=== PATIENT | female | born 1960 | race Caucasian/White ===

== ENCOUNTER 2019-06-06 11:54 | Emergency (ER) | payer MEDICARE ==
[2019-06-06 12:14] VITALS: BP 156/109; PULSE 107
[2019-06-06] MEDS ORDERED: Sodium Chloride 0.9% 500 ML IV ONE (12:47)
[2019-06-06] MEDS ORDERED: Sodium Chloride 0.9% 10 ML Syringe FLUSH PRN (12:47)
[2019-06-06] MEDS ORDERED: Albuterol/Ipratropium 3.0-0.5 MG/3 ML Neb Soln NEB ONE (12:47)
[2019-06-06] MEDS ORDERED: HYDROmorphone 0.5 MG/0.5 ML Syringe IVPUSH ONE ×2 (12:56→14:57)
[2019-06-06] MEDS ORDERED: Ondansetron 4 MG/2 ML SDV IVPUSH ONE (12:56)
[2019-06-06] MEDS ORDERED: predniSONE 20 MG Tab PO ONE (14:57)
[2019-06-06] MEDS ORDERED: Azithromycin 250 MG Tab PO STA (14:57)
[2019-06-06] MEDS ORDERED: Oseltamivir 30 MG Cap PO STA (14:57)
--- NOTE | 2019-06-06 15:06 | EDM.PDOC ---
ED HPI GENERAL MEDICAL PROBLEM - General Chief Complaint: Respiratory Problem Stated Complaint: TROUBLE BREATHING/CLINIC SENT HER Time Seen by Provider: 06/06/19 12:30 Source of Information: Reports: Patient History Limitations: Reports: No Limitations - History of Present Illness INITIAL COMMENTS - FREE TEXT/NARRATIVE: 59-year-old female presents for evaluationand treatment of shortness of breath. Patient sent from the walk-in clinic. She reports that she was ill several weeks ago. States that she felt short of breath and took her oxygen sats at home to be 74%. she presented to the [place] [facility]. she was placed on oxygen given a shot of steroids and a shot of antibiotics. she was prescribed steroids and a ten-day course of levaquin. she states that she has now finished the levaquin and the extra steroids about 3 days ago. she is on prednisone about 5 mg daily for RA. patient reports now last night her symptoms came back and are worse. she reports she has not had a fever, she has felt feverish with highest temperature she's had at home was 99. she reports chills. she reports a productive cough, headaches and bodyaches. she reports posttussive emesis. reports significant back pain that is worse than normal. she sees dr. Amanda lion of [facility]. patient has history of copd and states that she has multiple precancerous or cancerous lung nodules. she is on oxygen 2 l via nasal cannula at night. she was instructed by [facility] to use this during the day but she refuses because she is not want to become dependent on it. patient also sees dr. Bradford efficiency clerk in [place]. she had a kidney transplant about 10 years ago and is on immunosuppressive's for this. additionally patient has chronic back as well as pain from ra and osteoporosis. her primary care provider is in [place]. she has not seen her in follow-up since this started. she has not seen the last 2 months. Neck Pain Score (Numeric/FACES): 8 - Related Data Allergies Allergy/AdvReac Type Severity Reaction Status Date / Time cortisone Allergy Other Verified 06/06/19 12:14 Sulfa (Sulfonamide Allergy Hives Verified 06/06/19 12:14 Antibiotics) Home Meds: Home Meds ALPRAZolam [Xanax XR] 1 mg PO TID PRN 05/04/15 [History] Albuterol Sulfate 3 ml INH Q6HR PRN 05/04/15 [History] Cranberry 500 mg PO DAILY 05/04/15 [History] Esomeprazole [NexIUM] 40 mg PO DAILY 05/04/15 [History] Mycophenolate [Myfortic] 180 mg PO BID 05/04/15 [History] Tacrolimus [Prograf] 2 mg PO BID 05/04/15 [History] Tiotropium [Spiriva HandiHaler] 1 puff INH DAILY 05/04/15 [History] Triamcinolone Acetonide [Nasacort] 2 sprays RUBIA DAILY 05/04/15 [History] amLODIPine Besylate [Amlodipine Besylate] 10 mg PO DAILY 05/04/15 [History] oxyCODONE ER [OxyCONTIN] 10 mg PO TID PRN 05/04/15 [History] predniSONE [Prednisone] 5 mg PO DAILY 05/04/15 [History] Azithromycin 250 mg PO DAILY #4 tablet 06/06/19 [Rx] Oseltamivir [Tamiflu] 30 mg PO BID #9 cap 06/06/19 [Rx] predniSONE [Prednisone] 20 mg PO DAILY #6 tablet 06/06/19 [Rx] Past Medical History Cardiovascular History: Reports: Hypertension Respiratory History: Reports: Other (See Below) Other Respiratory History: lung nodules which pt states are cancerous Other Genitourinary History: 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 Had a kidney transplant 8 years ago. - Past Surgical History HEENT Surgical History: Reports: Tonsillectomy GI Surgical History: Reports: Cholecystectomy, Colonoscopy Social & Family History - Tobacco Use Smoking Status *Q: Current Some Day Smoker Years of Tobacco use: 43 Packs/Tins Daily: 0.1 - Caffeine Use Caffeine Use: Reports: Tea - Recreational Drug Use Recreational Drug Use: No ED ROS GENERAL - Review of Systems Review Of Systems: See Below Constitutional: Reports: Fever (subjective), Chills, Malaise, Other (Reports body aches) Respiratory: Reports: Shortness of Breath, Cough, Sputum Cardiovascular: Denies: Chest Pain GI/Abdominal: Reports: Vomiting (posttussive) : Reports: No Symptoms Musculoskeletal: Reports: Back Pain (Chronic) Neurological: Reports: Headache ED EXAM, GENERAL - Physical Exam Exam: See Below Exam Limited By: No Limitations General Appearance: Alert, WD/WN, Mild Distress, Thin Eye Exam: Bilateral Eye: Normal Inspection Ears: Normal External Exam, Normal Canal, Hearing Grossly Normal, Normal TMs Nose: Normal Inspection Throat/Mouth: Normal Inspection, Normal Lips, Normal Oropharynx, Normal Voice, No Airway Compromise Neck: Normal Inspection Respiratory/Chest: Rhonchi, Wheezing Cardiovascular: Normal Peripheral Pulses, No Murmur, Tachycardia GI/Abdominal: Normal Bowel Sounds, Soft, Non-Tender Neurological: Alert, Oriented, Normal Cognition Psychiatric: Normal Affect, Normal Mood Skin Exam: Warm, Dry, Normal Color EKG INTERPRETATION EKG Date: 06/06/19 Time: 13:11 Rhythm: NSR Rate (Beats/Min): 93 [place]: Normal P-Wave: Present QRS: Normal ST-T: Normal QT: Normal EKG Interpretation Comments: NSR at 93 bpm. Q waves in V2 and V3, slight ST depression in V5 and V6. Reviewed by myself and Dr. Tan. Course - Vital Signs Last Recorded V/S: Last Vital Signs Temp 98.2 F 06/06/19 12:08 Pulse 107 H 06/06/19 12:08 Resp 24 H 06/06/19 12:08 BP 156/109 H 06/06/19 12:08 Pulse Ox 96 06/06/19 12:50 - Orders/Labs/Meds Labs: Laboratory Tests 06/06/19 06/06/19 06/06/19 Range/Units 12:20 12:20 12:20 WBC 17.77 H (3.98-10.04) K/mm3 RBC 5.07 (3.98-5.22) M/mm3 Hgb 14.4 (11.2-15.7) gm/dl Hct 44.6 (34.1-44.9) % MCV 88.0 D (79.4-94.8) fl MCH 28.4 (25.6-32.2) pg MCHC 32.3 (32.2-35.5) g/dl RDW Std Deviation 49.2 H (36.4-46.3) fL Plt Count 244 (182-369) K/mm3 MPV 10.3 (9.4-12.3) fl Neutrophils % (Manual) 81 H (40-60) % Band Neutrophils % 0 (0-10) % Lymphocytes % (Manual) 13 L (20-40) % Atypical Lymphs % 0 % Monocytes % (Manual) 5 (2-10) % Eosinophils % (Manual) 1 (0.7-5.8) % Basophils % (Manual) 0 L (0.1-1.2) Platelet Estimate Adequate Plt Morphology Comment Normal RBC Morph Comment Normal Sodium 141 (136-145) mEq/L Potassium 4.2 (3.5-5.1) mEq/L Chloride 105 (98-107) mEq/L Carbon Dioxide 23 (21-32) mEq/L Anion Gap 17.2 H (5-15) BUN 19 H (7-18) mg/dL Creatinine 1.4 H (0.55-1.02) mg/dL Est Cr Clr Drug Dosing 25.10 mL/min Estimated GFR (MDRD) 38 (>60) mL/min BUN/Creatinine Ratio 13.6 L (14-18) Glucose 102 (74-106) mg/dL Lactic Acid (0.4-2.0) mmol/L Calcium 9.3 (8.5-10.1) mg/dL Magnesium 1.9 (1.8-2.4) mg/dl Total Bilirubin 0.4 (0.2-1.0) mg/dL AST 14 L (15-37) U/L ALT 25 (14-59) U/L Alkaline Phosphatase 88 (46-116) U/L C-Reactive Protein 0.8 (<1.0) mg/dL Total Protein 7.9 (6.4-8.2) g/dl Albumin 3.6 (3.4-5.0) g/dl Globulin 4.3 gm/dL Albumin/Globulin Ratio 0.8 L (1-2) Urine Color (Yellow) Urine Appearance (Clear) Urine pH (5.0-8.0) Ur Specific [place] (1.005-1.030) Urine Protein (Negative) Urine Glucose (UA) (Negative) Urine Ketones (Negative) Urine Occult Blood (Negative) Urine Nitrite (Negative) Urine Bilirubin (Negative) Urine Urobilinogen (0.2-1.0) Ur Leukocyte Esterase (Negative) Urine RBC (0-5) /hpf Urine WBC (0-5) /hpf Ur Squamous Epith Cells (0-5) /hpf Urine Bacteria (FEW) /hpf Urine Mucus (FEW) /hpf Urine Opiates Screen (KAOLRD=713) Ur Buprenorphine Scrn (CUTOFF=10) Ur Oxycodone Screen (ITW9JR=039) Urine Methadone Screen (QRMMCL=965) Ur Propoxyphene Screen (NGPWKO=729) Ur Barbiturates Screen (XIIYNI=851) Ur Tricyclics Screen (WHXIGZ=718) Ur Phencyclidine Scrn (CUTOFF=25) Ur Amphetamine Screen (DRWGGM=305) U Methamphetamines Scrn (POZNFE=362) U Benzodiazepines Scrn (GRSBJX=878) U Cocaine Metab Screen (EMUGMS=229) U Marijuana (THC) Screen (CUTOFF=50) Mycoplasma pneumon IgM Positive H (NEGATIVE) 06/06/19 06/06/19 06/06/19 Range/Units 13:27 14:10 14:10 WBC (3.98-10.04) K/mm3 RBC (3.98-5.22) M/mm3 Hgb (11.2-15.7) gm/dl Hct (34.1-44.9) % MCV (79.4-94.8) fl MCH (25.6-32.2) pg MCHC (32.2-35.5) g/dl RDW Std Deviation (36.4-46.3) fL Plt Count (182-369) K/mm3 MPV (9.4-12.3) fl Neutrophils % (Manual) (40-60) % Band Neutrophils % (0-10) % Lymphocytes % (Manual) (20-40) % Atypical Lymphs % % Monocytes % (Manual) (2-10) % Eosinophils % (Manual) (0.7-5.8) % Basophils % (Manual) (0.1-1.2) Platelet Estimate Plt Morphology Comment RBC Morph Comment Sodium (136-145) mEq/L Potassium (3.5-5.1) mEq/L Chloride (98-107) mEq/L Carbon Dioxide (21-32) mEq/L Anion Gap (5-15) BUN (7-18) mg/dL Creatinine (0.55-1.02) mg/dL Est Cr Clr Drug Dosing mL/min Estimated GFR (MDRD) (>60) mL/min BUN/Creatinine Ratio (14-18) Glucose (74-106) mg/dL Lactic Acid 1.0 (0.4-2.0) mmol/L Calcium (8.5-10.1) mg/dL Magnesium (1.8-2.4) mg/dl Total Bilirubin (0.2-1.0) mg/dL AST (15-37) U/L ALT (14-59) U/L Alkaline Phosphatase (46-116) U/L C-Reactive Protein (<1.0) mg/dL Total Protein (6.4-8.2) g/dl Albumin (3.4-5.0) g/dl Globulin gm/dL Albumin/Globulin Ratio (1-2) Urine Color Yellow (Yellow) Urine Appearance Clear (Clear) Urine pH 7.0 (5.0-8.0) Ur Specific [place] 1.020 (1.005-1.030) Urine Protein Negative (Negative) Urine Glucose (UA) Negative (Negative) Urine Ketones Negative (Negative) Urine Occult Blood Trace-intact H (Negative) Urine Nitrite Negative (Negative) Urine Bilirubin Negative (Negative) Urine Urobilinogen 0.2 (0.2-1.0) Ur Leukocyte Esterase Negative (Negative) Urine RBC 0-5 (0-5) /hpf Urine WBC 0-5 (0-5) /hpf Ur Squamous Epith Cells 0-5 (0-5) /hpf Urine Bacteria Occasional (FEW) /hpf Urine Mucus Not seen (FEW) /hpf Urine Opiates Screen Presumptive positive H (FPHTDT=193) Ur Buprenorphine Scrn Negative (CUTOFF=10) Ur Oxycodone Screen Negative (LXP7ER=150) Urine Methadone Screen Negative (CXPYSK=718) Ur Propoxyphene Screen Negative (GQAVOY=802) Ur Barbiturates Screen Negative (OYQNGX=924) Ur Tricyclics Screen Negative (ZGBKCO=330) Ur Phencyclidine Scrn Negative (CUTOFF=25) Ur Amphetamine Screen Presumptive positive H (BTUNXT=206) U Methamphetamines Scrn Negative (OKQJOB=871) U Benzodiazepines Scrn Presumptive positive H (IEWTKS=348) U Cocaine Metab Screen Negative (VFHKRD=432) U Marijuana (THC) Screen Negative (CUTOFF=50) Mycoplasma pneumon IgM (NEGATIVE) Meds: Medications Discontinued Medications Generic Name Dose Route Start Last Admin Trade Name Freq PRN Reason Stop Dose Admin Albuterol/Ipratropium 3 ml 06/06/19 12:47 06/06/19 13:13 Duoneb 3.0-0.5 Mg/3 Ml NEB 06/06/19 12:48 3 ml ONETIME ONE Administration Azithromycin 500 mg 06/06/19 14:57 06/06/19 15:32 Zithromax PO 06/06/19 14:58 500 mg NOW STA Administration Hydromorphone HCl 0.5 mg 06/06/19 12:56 06/06/19 13:37 Dilaudid IVPUSH 06/06/19 12:57 0.5 mg ONETIME ONE Administration Hydromorphone HCl 0.5 mg 06/06/19 14:57 06/06/19 15:30 Dilaudid IVPUSH 06/06/19 14:58 0.5 mg ONETIME ONE Administration Sodium Chloride 500 mls @ 500 mls/hr 06/06/19 12:47 06/06/19 13:14 Normal Saline IV 06/06/19 13:46 500 mls/hr ONETIME ONE Administration Ondansetron HCl 4 mg 06/06/19 12:56 06/06/19 13:35 Zofran IVPUSH 06/06/19 12:57 4 mg ONETIME ONE Administration Oseltamivir Phosphate 30 mg 06/06/19 14:57 06/06/19 15:32 Tamiflu PO 06/06/19 14:58 30 mg NOW STA Administration Prednisone 20 mg 06/06/19 14:57 06/06/19 15:32 Prednisone PO 06/06/19 14:58 20 mg ONETIME ONE Administration Sodium Chloride 10 ml 06/06/19 12:47 06/06/19 13:36 Saline Flush FLUSH 10 ml ASDIRECTED PRN Administration Keep Vein Open - Radiology Interpretation Free Text/Narrative:: chest xray shows no obvious infiltrate. Hyperinflation and flattened diaphragm. Reviewed by myself and dr. Tan. - Re-Assessments/Exams Free Text/Narrative Re-Assessment/Exam: 06/06/19 15:02 Influenza B is positive, question if this is a false positive. I have reviewed the labs and imaging with the patient. I feel she should stay in the hospital given her multiple comorbid conditions. She was offered this multiple times but she would like to go home. Discussed side effects of tamiflu and risks/benefits. She would like to start tamiflu. I will renally dose her. Encouraged very close follow-up with PCP. Instructed to return if symptoms change or worsen. Discharge instructions as documented. Departure - Departure Time of Disposition: 15:10 Disposition: Home, Self-Care 01 Condition: Poor Clinical Impression: Influenza, Mycoplasma infection - Discharge Information *PRESCRIPTION DRUG MONITORING PROGRAM REVIEWED*: No *COPY OF PRESCRIPTION DRUG MONITORING REPORT IN PATIENT FORTINO: No Prescriptions: Azithromycin 250 mg PO DAILY #4 tablet Oseltamivir [Tamiflu] 30 mg PO BID #9 cap predniSONE [Prednisone] 20 mg PO DAILY #6 tablet Instructions: Shortness of Breath, Adult, [id number] Referrals: PCP,Not In Area [Primary Care Provider] - Forms: ED Department Discharge Additional Instructions: Follow-up with your primary care provider on Sunday. Increase your prednisone to 25 mg daily total. your first dose was given in the ER. Start your prescription tomorrow. Take the azithromycin 1 tab for 5 days. Her first dose was given in the ER. Start this prescription tomorrow. Varg[place] 1 Twice a day for 5 days, first dose was given in the ER. Make sure you are drinking plenty of fluids. Please return to ER for symptoms change or worsen.
--- NOTE | 2019-06-09 07:10 | CR ---
Chest: PA and lateral views of the chest were obtained. Comparison: No prior chest x-ray. Heart size and mediastinum are normal. Lungs are clear but hyperinflated. Previous cervical spine surgery is noted. No acute osseous abnormality is seen. Surgical clips are seen from prior cholecystectomy. Impression: 1. Emphysematous change. Nothing acute is otherwise seen. Diagnostic code #2
== END 2019-06-06 15:40 | disposition home or self-care (01) ==
LOC: JD.ED 11:54
DX: J10.1 Influenza due to other identified influenza virus with other respiratory manifestations (principal); B96.0 Mycoplasma pneumoniae [M. pneumoniae] as the cause of diseases classified elsewhere; J44.9 Chronic obstructive pulmonary disease, unspecified; I10 Essential (primary) hypertension; F17.210 Nicotine dependence, cigarettes, uncomplicated; Z88.2 Allergy status to sulfonamides; Z88.8 Allergy status to other drugs, medicaments and biological substances; Z79.899 Other long term (current) drug therapy
CPT/HCPCS: 36415; 71046; 80053; 80306; 81001; 83605; 83735; 85007; 85027; 86140; 86738; 87040; 87804; 93005; 94640; 96361; 96374; 96375; 96376; 99285; A9270; J1170; J2405; J7040; 93010; 99284; J7620-GY